=== PATIENT | female | born 1960 | race African-American/Black ===

== ENCOUNTER 2018-12-12 13:05 | Outpatient (CLI) | payer OTHER ==
--- NOTE | 2018-12-12 14:39 | MRI ---
MRI LEFT KNEE WITHOUT CONTRAST: INDICATIONS: Concern for medial meniscal tear. COMPARISON: None. FINDINGS: The ACL, PCL, MCL, and LCLC are intact. There is post surgical change involving the distal patella and the patellar tendon. There is moderat e thickening of the patellar tendon with numerous foci of susceptibility artifact seen within the mid substance of the patellar tendon, which may reflect patellar tendon repair and reinsertion into the inferior aspect of the patella. There is mild tendinosis of the quadriceps tendon. There is mild chondrosis involving the medial patellar facet. There is a focal full-thickness articu lar cartilage fissure involving the medial femoral trochlea, measuring 2.98 mm, on image 21 of series 3. Mild motion artifact slightly limits exam detail of the examination. There is some intrinsic menisca l degeneration involving the anterior horn of the lateral meniscus. No discrete meniscal tear is ministerio dent. The articular cartilage of the femorotibial compartment appears relatively well preserved. Th ere is mild joint distention seen within the popliteal hiatus. The popliteus is intact. The IT band is intact. IMPRESSION: 1. Extensive post surgical and post traumatic change involving the extensor mechanism with moderate patellar tendinosis and mild quadriceps tendinosis without evidence of discrete tear. 2. Full-thickness articular cartilage fissure involving the medial femoral trochlea. 3. No discrete meniscal tear demonstrated. There is some mild intrinsic meniscal degenerative signa l seen within the anterior horn and anterior root of the lateral meniscus. POS: [facility]
== END 2018-12-12 13:06 | disposition home or self-care (01) ==
LOC: SCSMRI 13:05
PROVIDERS: ATTEND Orthopaedic Surgery
DX: S83.242A Other tear of medial meniscus, current injury, left knee, initial encounter (principal); M67.962 Unspecified disorder of synovium and tendon, left lower leg; M67.952 Unspecified disorder of synovium and tendon, left thigh; M23.92 Unspecified internal derangement of left knee; R93.7 Abnormal findings on diagnostic imaging of other parts of musculoskeletal system

== ENCOUNTER 2019-01-10 03:30 | Outpatient (CLI) | payer OTHER ==
[2019-01-10 14:07] LABS: Hemoglobin 14.3 g/dL (12.0-16.0); Mean Corpuscular HGB CONC 33.8 g/dL (32.0-36.0); Mean Corpuscular Hemoglobin 31.8 pg (27.0-31.0); Mean Corpuscular Volume 94.1 fL (78.0-98.0); Mean Platelet Volume 8.4 fL (7.4-10.4); Platelet Count 258 thou/uL (130-400); RBC Distribution Width 11.7 % (11.5-14.5); Red Blood Cell (RBC) Count 4.49 mill/uL (4.20-5.40); White Blood Cell (WBC) Count 7.7 thou/uL (4.8-10.8)
[2019-01-10 14:27] LABS: Anion Gap 11 mmol/L (10-20); BUN (Urea Nitrogen) 4 mg/dL (9.8-20.1); Calc. Creatinine Clearance 0 mL/min (70-130); Calcium 9.8 mg/dL (7.8-10.44); Carbon Dioxide 27 mmol/L (22-29); Chloride 105 mmol/L (98-107); Estimated GFR-MDRD Greater than 90; Glucose 87 mg/dL (70-105); Potassium 3.6 mmol/L (3.5-5.1); Sodium 139 mmol/L (136-145)
--- NOTE | 2019-01-12 07:14 | EKG ---
Test Reason : Blood Pressure : / mmHG Vent. Rate : 088 BPM Atrial Rate : 088 BPM P-R Int : 152 ms QRS Dur : 068 ms QT Int : 374 ms P-R-T Axes : 069 014 019 degrees QTc Int : 452 ms Sinus rhythm with Fusion complexes Otherwise normal ECG When compared with ECG of 14-DEC-2016 18:11, No significant change was found Confirmed by GALILEA LUGO ([id number]) on 01/12/2019 7:13:56 AM Referred By: MARY Confirmed By:GALILEA LUGO
== END 2019-01-10 03:31 | disposition home or self-care (01) ==
LOC: LABBT 03:30
PROVIDERS: ATTEND Orthopaedic Surgery
DX: Z01.818 Encounter for other preprocedural examination (principal); M65.312 Trigger thumb, left thumb
CPT/HCPCS: 80048; 85027; 93005; 93010

== ENCOUNTER 2019-01-11 06:58 | Day surgery (SDC) | payer OTHER ==
[2019-01-10 13:55] VITALS: BMI 28.7
[2019-01-11] MEDS ORDERED: Clindamycin/D5W 900 mg/50 ml Premix Bag ONE (08:33)
[2019-01-11] MEDS ORDERED: Bupivacaine PF 0.5% 30 ML VIAL ONE (09:40)
[2019-01-11] MEDS ORDERED: Propofol 500 MG/50 ML VIAL ONE (09:45)
[2019-01-11] MEDS ORDERED: PROPOFOL 20 ML ONE (10:01)
[2019-01-11] MEDS ORDERED: PROPOFOL 200 MG/20 ML VIAL ONE (17:04)
--- NOTE | 2019-01-12 08:44 | OP ---
DATE OF PROCEDURE: 01/11/2019 PREOPERATIVE DIAGNOSIS: Left trigger thumb. POSTOPERATIVE DIAGNOSIS: Left trigger thumb. PROCEDURE PERFORMED: Left trigger thumb release. ANESTHESIA: TIVA with local. DESCRIPTION OF PROCEDURE: The patient was given preoperative IV antibiotics and was taken to the operating room, TIVA anesthesia was performed. The left upper extremity was sterilely prepped and draped in the usual fashion. A total of 10 mL of 0.5% Marcaine plain was injected around the palmar base of the left thumb. The left hand, upper extremity was exsanguinated and tourniquet at the left arm was raised to 200 mmHg. A transverse incision was made at the base of the thumb and blunt dissection was made down to the flexor tendon sheath. The radial and ulnar digital nerves were identified and carefully retracted out of the way. The thickened A1 tony was located and divided with tenotomy scissors. A portion of the A1 tony was excised and made sure that there was no constrictive tissue in the flexor tendon sheath to the tendons, both proximally and distally, the underlying tendons were in good condition. The wound was then irrigated with antibiotic solution and closed using 3-0 Rapide. Sterile dressing was applied. Tourniquet was released. The patient was awakened and transferred back to Day Stay. TOURNIQUET TIME: 7 minutes. DISCHARGE MEDICATION: Tylenol No. 3 one every 6 hours as needed for pain, #40. FOLLOWUP: Follow up in my office in 1 week. Job ID: [id number]
== END 2019-01-11 11:00 | disposition home or self-care (01) ==
LOC: SDC 06:58
PROVIDERS: ATTEND Orthopaedic Surgery
PROC: 0LN80ZZ Release Left Hand Tendon, Open Approach (ICD-10-PCS; principal; 2019-01-11)
DX: M65.312 Trigger thumb, left thumb (principal)
CPT/HCPCS: J2704; J3490; S0020

== ENCOUNTER 2019-05-25 09:34 | Emergency (ER) | payer OTHER ==
[2019-05-25] MEDS ORDERED: Ibuprofen 200 MG TAB ONE (11:02)
== END 2019-05-25 11:11 | disposition home or self-care (01) ==
LOC: ERS 09:34
DX: M19.90 Unspecified osteoarthritis, unspecified site (principal); M79.645 Pain in left finger(s); I10 Essential (primary) hypertension; M17.12 Unilateral primary osteoarthritis, left knee
CPT/HCPCS: 99283

== ENCOUNTER 2020-01-11 13:59 | Emergency (ER) | payer OTHER | END 2020-01-11 14:38 | disposition home or self-care (01) | LOC: ERS 13:59 | DX: L25.9 Unspecified contact dermatitis, unspecified cause (principal); S10.91XA Abrasion of unspecified part of neck, initial encounter; S40.812A Abrasion of left upper arm, initial encounter; S40.811A Abrasion of right upper arm, initial encounter; I10 Essential (primary) hypertension; F17.210 Nicotine dependence, cigarettes, uncomplicated; Z79.899 Other long term (current) drug therapy; Y33.XXXA Other specified events, undetermined intent, initial encounter; W57.XXXA Bitten or stung by nonvenomous insect and other nonvenomous arthropods, initial encounter | CPT/HCPCS: 99281 ==

== ENCOUNTER 2020-01-13 04:35 | Emergency (ER) | payer OTHER, SELFPAY ==
[2020-01-13] MEDS ORDERED: diphenhydrAMINE 25 MG CAP ONE (04:50)
== END 2020-01-13 05:07 | disposition home or self-care (01) ==
LOC: ERS 04:35
DX: L29.9 Pruritus, unspecified (principal); I10 Essential (primary) hypertension; F17.210 Nicotine dependence, cigarettes, uncomplicated; Z79.899 Other long term (current) drug therapy
CPT/HCPCS: 99283; Q0163